=== PATIENT | female | born 1935 | race Caucasian/White ===

== ENCOUNTER → 2020-10-12 13:27 | Outpatient (BNVA) | payer OTHER, MEDICARE, SELFPAY | PROVIDERS: Visit Provider Nurse Practitioner Family | DX: R30.0 Dysuria (principal); R82.90 Unspecified abnormal findings in urine; H61.20 Impacted cerumen, unspecified ear | CPT/HCPCS: 81003; 87086 ==

== ENCOUNTER → 2021-03-07 13:19 | Outpatient (BNVA) | payer MEDICARE, OTHER, SELFPAY | PROVIDERS: Visit Provider Nurse Practitioner Family | DX: R30.0 Dysuria (principal); R82.90 Unspecified abnormal findings in urine | CPT/HCPCS: 81003; 87077; 87086; 87184 ==